=== PATIENT | female | born 2000 | race Caucasian/White ===

== ENCOUNTER 2022-06-30 06:45 | Inpatient (IN) | payer BC, MEDICAID ==
[2022-06-30] MEDS ORDERED: Sodium Chloride 0.9% 10 ML Syringe FLUSH PRN (06:53)
[2022-06-30] MEDS ORDERED: Acetaminophen 325 MG Tab PO PRN ×2 (06:53→18:00)
[2022-06-30] MEDS ORDERED: Nalbuphine HCl 10 MG/ 1ML Amp IVPUSH PRN (06:53)
[2022-06-30] MEDS ORDERED: Ondansetron 4 MG/2 ML SDV IVPUSH PRN (06:53)
[2022-06-30] MEDS ORDERED: Lactated Ringers 1,000 ML IV SCH (07:00)
[2022-06-30] MEDS ORDERED: Oxytocin/Lactated Ringers 10 UNIT/1,000 ML BAG IV SCH ×4 (07:00→08:15)
[2022-06-30 08:41] LABS: ESTIMATED GFR 130 mL/min (>60)
[2022-06-30] MEDS ORDERED: Sodium Chloride 0.9% 10 ML Syringe FLUSH SCH (09:00)
[2022-06-30] MEDS ORDERED: Ropivacaine 0.2% PF 2 MG/ML 20 ML SDV ONE (12:00)
[2022-06-30] MEDS ORDERED: ePHEDrine 50 MG/ML SDV IVPUSH PRN (12:22)
[2022-06-30] MEDS ORDERED: diphenhydrAMINE 50 MG/ML SDV IVPUSH PRN (12:22)
[2022-06-30] MEDS ORDERED: fentaNYL 100 MCG/2 ML SDV EPIDUR PRN (12:22)
[2022-06-30] MEDS ORDERED: Bupivacaine/fentaNYL/NS 100 ML Bag EPIDUR PRN (12:22)
[2022-06-30] MEDS ORDERED: Benzocaine/Menthol 20%-0.5% Spray 78 GM Cannister TOP PRN (18:00)
[2022-06-30] MEDS ORDERED: Docusate Sodium 100 MG Cap PO PRN (18:00)
[2022-06-30] MEDS ORDERED: Witch Hazel Medicated Pads 40/Jar TOP PRN (18:00)
[2022-06-30] MEDS: Ibuprofen 600 MG Tab PO PRN (23:28)
[2022-07-01] MEDS: Ibuprofen 600 MG Tab PO PRN ×2 (12:47→20:22)
[2022-07-02] MEDS: Ibuprofen 600 MG Tab PO PRN ×2 (04:07→13:40)
== END 2022-07-02 16:30 | disposition home or self-care (01) | DRG 560 ==
LOC: JD.OB 06:45 → OBSVTOIN 15:52 → JD.OB 15:53
PROVIDERS: ADMIT Obstetrics & Gynecology; ATTEND Obstetrics & Gynecology
PROC: 10E0XZZ Delivery of Products of Conception, External Approach (ICD-10-PCS; principal; 2022-06-30)
PROC: 10907ZC Drainage of Amniotic Fluid, Therapeutic from Products of Conception, Via Natural or Artificial Opening (ICD-10-PCS; 2022-06-30)
PROC: 3E0R3BZ Introduction of Anesthetic Agent into Spinal Canal, Percutaneous Approach (ICD-10-PCS; 2022-06-30)
PROC: 00HU33Z Insertion of Infusion Device into Spinal Canal, Percutaneous Approach (ICD-10-PCS; 2022-06-30)
DX: O14.94 Unspecified pre-eclampsia, complicating childbirth (principal); Z3A.37 37 weeks gestation of pregnancy; Z37.0 Single live birth; O99.52 Diseases of the respiratory system complicating childbirth; J45.909 Unspecified asthma, uncomplicated; O69.81X0 Labor and delivery complicated by cord around neck, without compression, not applicable or unspecified; O99.344 Other mental disorders complicating childbirth; F41.9 Anxiety disorder, unspecified
CPT/HCPCS: 36415; 51702; 59020; 59409; 82565; 82570; 84156; 84450; 84460; 85027; 86592; 86850; 86900; 86901; A9270-GY; J2590; J2795; J3010; J7120

== ENCOUNTER 2025-01-21 18:43 | Inpatient (IN) | payer BC ==
[~2025-01-21 18:43] MED LIST: Bupivacaine 0.25% 10 ML SDV ONE; Ropivacaine 0.2% PF 2 MG/ML 20 ML SDV ONE
[2025-01-21] MEDS: Lactated Ringers 1,000 ML IV SCH (19:00)
[2025-01-21] MEDS ORDERED: Lidocaine 1% 50 ML MDV INJECT PRN (19:20)
[2025-01-21] MEDS ORDERED: Nalbuphine 10 MG/1 ML Vial IVPUSH PRN (19:20)
[2025-01-21] MEDS ORDERED: Ondansetron 4 MG/2 ML SDV IVPUSH PRN (19:20)
[2025-01-21 19:36] LABS: BASOPHILS PERCENT AUTO 0.1 % (0.0-1.0); EOSINOPHILS PERCENT AUTO 0.1 % (0.0-6.0); HEMATOCRIT 38.6 % (37.0-47.0); HEMOGLOBIN 13.1 gm/dl (12.0-16.0); IMMATURE GRAN ABSOLUTE AUTO 0.07 K/mm3 (0.00-0.05); IMMATURE GRAN PERCENT AUTO 0.4 % (0.0-0.4); LYMPHOCYTES ABSOLUTE AUTO 1.5 K/mm3 (1.0-4.8); LYMPHOCYTES PERCENT AUTO 9.1 % (24.0-44.0); MEAN CORPUSCULAR HEMOGLOBIN 31.2 pg (28.0-32.0); MEAN CORPUSCULAR HGB CONC 33.9 g/dl (32.0-36.0); MEAN CORPUSCULAR VOLUME 91.9 fl (83.0-99.0); MONOCYTES ABSOLUTE AUTO 0.9 K/mm3 (0.0-0.8); MONOCYTES PERCENT AUTO 5.4 % (0.0-8.0); NEUTROPHILS ABSOLUTE AUTO 13.7 K/mm3 (1.8-7.7); NEUTROPHILS PERCENT AUTO 84.9 % (41.0-71.0); PLATELET COUNT,PLT 216 K/mm3 (150-400); WHITE BLOOD CELL COUNT,WBC 16.16 K/mm3 (3.9-11.3)
[2025-01-21] MEDS ORDERED: ePHEDrine 50 MG/ML SDV IM PRN (19:52)
[2025-01-21] MEDS ORDERED: diphenhydrAMINE 50 MG/ML SDV IVPUSH PRN (19:52)
[2025-01-21] MEDS ORDERED: ePHEDrine 50 MG/ML SDV IVPUSH PRN (19:52)
[2025-01-21 19:58] LABS: CREATININE 0.8 mg/dL (0.55-1.02); EST CRCL DRUG DOSING (CG) 100.63 mL/min
[2025-01-21] MEDS: Ropivacaine 200 MG in Premix Bag 1 BAG EPIDUR PRN (19:58)
[2025-01-21] MEDS: Oxytocin/0.9 % Sodium Chloride 30 UNIT/500 ML BAG IV SCH (21:01)
[2025-01-21] MEDS ORDERED: Acetaminophen 325 MG Tab PO PRN (22:08)
[2025-01-21] MEDS ORDERED: Docusate Sodium 100 MG Cap PO PRN (22:08)
[2025-01-21 22:43] LABS: CREATININE,URINE RAND 24.3 mg/dL (30.0-125.0)
[2025-01-21 22:52] LABS: PROTEIN,URINE RANDOM < 6.0 mg/dL (0.0-11.8)
[2025-01-21] MEDS: Witch Hazel Medicated Pads 40/Jar TOP PRN (23:24)
[2025-01-21] MEDS: Benzocaine/Menthol 20%-0.5% Spray 78 GM Cannister TOP PRN (23:25)
[2025-01-21] MEDS: Ibuprofen 600 MG Tab PO SCH (23:47)
[2025-01-22] MEDS ORDERED: Non-Formulary Medication 1 Each (Escitalopram 20 MG Tablet) PO SCH (09:00)
[2025-01-22] MEDS: Citalopram 20 MG Tab PO SCH (09:51)
== END 2025-01-22 21:05 | disposition home or self-care (01) | DRG 560 ==
LOC: JD.OBCHECK 18:43 → JD.OB 18:43 → JD.OBCHECK 19:19 → JD.OB 19:19 → UNDOADMOB 19:19 → JD.OB 19:20 → OBSVTOIN 21:01 → JD.OB 21:02
PROVIDERS: ADMIT Obstetrics & Gynecology; ATTEND Obstetrics & Gynecology
PROC: 10E0XZZ Delivery of Products of Conception, External Approach (ICD-10-PCS; principal; 2025-01-21)
PROC: 3E033VJ Introduction of Other Hormone into Peripheral Vein, Percutaneous Approach (ICD-10-PCS; 2025-01-21)
PROC: 3E0R3BZ Introduction of Anesthetic Agent into Spinal Canal, Percutaneous Approach (ICD-10-PCS; 2025-01-21)
PROC: 00HU33Z Insertion of Infusion Device into Spinal Canal, Percutaneous Approach (ICD-10-PCS; 2025-01-21)
DX: O10.92 Unspecified pre-existing hypertension complicating childbirth (principal); Z37.0 Single live birth; O99.344 Other mental disorders complicating childbirth; F41.9 Anxiety disorder, unspecified; Z98.890 Other specified postprocedural states; Z3A.38 38 weeks gestation of pregnancy; Z88.0 Allergy status to penicillin; Z87.891 Personal history of nicotine dependence
CPT/HCPCS: 01967; 36415; 51701; 59025; 59409; 82565; 82570; 83615; 84156; 84450; 84460; 84520; 84550; 85025; 86592; 86850; 86900; 86901; A9270-GY; J0665; J2795; J7120; J7999

== ENCOUNTER 2025-08-18 16:32 | Emergency (ER) | payer BC ==
[2025-08-18] MEDS: Acetaminophen/oxyCODONE 325-5 MG Tab PO ONE (17:50)
== END 2025-08-18 17:45 | disposition home or self-care (01) ==
LOC: JD.ED 16:32
DX: G89.18 Other acute postprocedural pain (principal); J34.89 Other specified disorders of nose and nasal sinuses; I10 Essential (primary) hypertension; J45.909 Unspecified asthma, uncomplicated; Z79.899 Other long term (current) drug therapy; Z88.0 Allergy status to penicillin; Z88.1 Allergy status to other antibiotic agents
CPT/HCPCS: 96372; 99283; A9270; J1171; 99284